=== PATIENT | female | born 1995 | race Two or more races ===

== ENCOUNTER 2018-07-06 19:55 | Emergency (ER) | payer MEDICAID ==
[~2018-07-06] VITALS: Ht 157.5 cm; Wt 81.6 kg
[2018-07-06 20:18] VITALS: BP 142/86
[2018-07-06] MEDS ORDERED: KETOROLAC TROMETH 60MG/2ML VIAL IM ONE (21:45)
[2018-07-06] MEDS ORDERED: methylPREDNISolone SOD SUCC 125 MG/2 ML VL IM ONE (21:45)
[2018-07-06] MEDS ORDERED: cefTRIAXone SOD 1,000 MG VL IM ONE (21:45)
[2018-07-06] MEDS ORDERED: LIDOCAINE VISCOUS 2% 15ML UD PO ONE (22:45)
== END 2018-07-06 22:50 | disposition home or self-care (01) ==
LOC: ER 19:55
DX: K04.7 Periapical abscess without sinus (principal); K03.81 Cracked tooth
CPT/HCPCS: 96372; 99284; J0696; J1885; J2930